=== PATIENT | female | born 1990 | race African-American/Black ===

== ENCOUNTER 2018-02-19 12:57 | Inpatient (IN) ==
[2018-02-19] MEDS ORDERED: LABETALOL 200 MG TABLET PO SCH (14:00)
[2018-02-19 14:05] LABS: Basophils % 0.3 % (0.0-0.8); Eosinophils % 0.5 % (0.00-10.9); Hematocrit 28.6 VOL% (35.7-47.0); Hemoglobin 8.8 GM/DL (12.0-16.0); Immature Granulocytes % 0.5 %; Immature Granulocytes Absolute 0.03 #; Lymphocytes # 1.6 10*3/uL (1.4-4.0); Lymphocytes % 24.3 % (21.3-54.2); Mean Corpuscular HGB Conc 30.8 GM/DL (32-36); Mean Corpuscular Hemoglobin 25 PG (27-34); Mean Corpuscular Volume 82.2 FL (87-102); Mean Platelet Volume 10.5 FL (9.6-12.0); Monocytes # 0.4 10*3/uL (0.11-0.8); Monocytes % 6.9 % (1.7-12.7); NRBC # 0.02 10*3/uL; Neutrophils # 4.3 10*3/uL (1.4-7.4); Neutrophils % 67.5 % (38.7-73.9); Platelet Count 241 T/CUMM (130-400); Red Blood Count 3.48 MC/CUMM (3.8-5.5); Red Cell Distribution Width 13.6 % (9.3-17.3); White Blood Count 6.4 T/CUMM (4-12)
[2018-02-19 14:33] LABS: Alanine Aminotransferase 13 U/L (13-56); Albumin 2.6 G/DL (3.4-5.0); Alkaline Phosphatase 136 U/L (45-117); Aspartate Amino Transferase 15 U/L (0-37); Bilirubin,Total < 0.39 MG/DL (0.2-1.0); Blood Urea Nitrogen 8 MG/DL (7-18); Calcium 8.6 MG/DL (8.5-10.1); Glucose 71 MG/DL (74-106); Osmolality,Calculated 270.7 MOS/KG (273-304); Potassium 3.6 MMOL/L (3.5-5.1); Sodium 138 MMOL/L (136-145); Total Protein 6.9 G/DL (6.4-8.3); Uric Acid 5.3 MG/DL (2.6-6.0)
[2018-02-19 14:59] LABS: Apearance,Urine Slightly Hazy (Clear); Bacteria,Urine Few /HPF (Few); Bilirubin,Urine Negative (Negative); Blood, Urine Negative (Negative); Glucose,Urine (UA) Negative (Negative); Ketones,Urine 5 mg/dL (Negative); Mucus,Urine Many /LPF (Occasional); Nitrite,Urine Negative (Negative); Protein,Urine 30 MG/DL; RBC,Urine 3 /HPF (0-4); Squamous Epithelial Cell,Urine Occasional /HPF (0-10); Urine Color Yellow (Yellow); Urine Specific Gravity 1.024 (1.001-1.035); WBC,Urine 7 /HPF (0-6)
[2018-02-19] MEDS ORDERED: BUTORPHANOL 2 MG/ML VIAL IV PRN (15:20)
[2018-02-19] MEDS ORDERED: MEPERIDINE 50 MG/1 ML VIAL IV PRN (15:20)
[2018-02-19] MEDS: LABETALOL 200 MG TABLET PO SCH (22:07)
[2018-02-19] MEDS: LACTATED RINGERS 1,000 ML IV SCH (23:40)
[2018-02-20] MEDS: LACTATED RINGERS 1,000 ML IV SCH (00:06)
[2018-02-20] MEDS ORDERED: AMPICILLIN INJ 2,000 MG in SODIUM CHLORIDE 0.9% 100 ML IV SCH (07:30)
[2018-02-20] MEDS ORDERED: CITRIC ACID/SODIUM CITRATE 30 ML UDCUP PO ONE (07:31)
[2018-02-20] MEDS ORDERED: ceFAZolin 3,000 MG in SYRINGE 1 EACH IV ONE (07:32)
[2018-02-20] MEDS ORDERED: FAMOTIDINE 20 MG/2 ML VIAL IV ONE (07:32)
[2018-02-20] MEDS ORDERED: OXYTOCIN/LR 20 UNIT/1,000 ML BAG IV ONE ×2 (07:32→11:07)
[2018-02-20] MEDS: LABETALOL 200 MG TABLET PO SCH ×3 (07:58→21:02)
[2018-02-20 08:43] LABS: INR 0.9; PT Patient Result 9.9 SECS; Partial Thromboplastin Time 26.6 SECS (0-40)
[2018-02-20] MEDS ORDERED: RHO(D) IMMUNE GLOBULIN 300 MCG SYRINGE IM ONE (11:07)
[2018-02-20] MEDS ORDERED: ONDANSETRON 4 MG/2 ML VIAL IV PRN (11:07)
[2018-02-20] MEDS ORDERED: LANOLIN 50% CREAM 0.3 OZ TUBE TOP PRN (11:07)
[2018-02-20] MEDS ORDERED: BENZOCAINE 20%/MENTHOL 0.5% SPRAY 56 GM CAN TOP PRN (11:07)
[2018-02-20] MEDS ORDERED: MEASLES/MUMPS/RUBELLA VACCINE 0.5 ML VIAL SUBCUT ONE (11:07)
[2018-02-20] MEDS ORDERED: HYDROCORTISONE 2.5% RECTAL CREAM 30 GM TUBE TOP PRN (11:07)
[2018-02-20] MEDS ORDERED: BISACODYL 10 MG SUPP RECTAL PRN (11:07)
[2018-02-20] MEDS ORDERED: oxyCODONE/ACETAMINOPHEN 5-325 MG TABLET PO PRN (11:07)
[2018-02-20] MEDS ORDERED: ACETAMINOPHEN 325 MG TABLET PO PRN (11:07)
[2018-02-20] MEDS ORDERED: WITCH HAZEL PADS 100/JAR TOP PRN (11:07)
[2018-02-20] MEDS ORDERED: DIPH/TET/ACEL PERT BOOSTER VACCINE 0.5 ML VIAL IM ONE (11:07)
[2018-02-20] MEDS ORDERED: fentaNYL 100 MCG/2 ML VIAL ONE (11:13)
[2018-02-20] MEDS ORDERED: MORPHINE 10 MG/10 ML VIAL ONE (11:14)
[2018-02-20] MEDS: ONDANSETRON 4 MG/2 ML VIAL IV PRN ×2 (11:53→21:01)
[2018-02-20] MEDS ORDERED: PROMETHAZINE 25 MG/1 ML VIAL IM ONE (14:55)
[2018-02-20] MEDS ORDERED: BUPIVACAINE SPINAL 0.75% 2 ML AMP SPINAL ONE (15:08)
[2018-02-20] MEDS ORDERED: HYDROmorphone 2 MG/1 ML VIAL IV PRN (17:58)
[2018-02-20] MEDS: ceFAZolin 1,000 MG in SYRINGE 1 EACH IV SCH (18:08)
[2018-02-21] MEDS: DOCUSATE SODIUM 100 MG CAPSULE PO SCH ×3 (02:10→20:57)
[2018-02-21] MEDS: oxyCODONE/ACETAMINOPHEN 5-325 MG TABLET PO PRN ×4 (02:11→18:48)
[2018-02-21] MEDS: IBUPROFEN 800 MG TABLET PO PRN ×2 (02:11→20:57)
[2018-02-21] MEDS: ceFAZolin 1,000 MG in SYRINGE 1 EACH IV SCH ×2 (04:05→10:43)
[2018-02-21 04:42] LABS: Basophils % 0.1 % (0.0-0.8); Eosinophils % 0.4 % (0.00-10.9); Hematocrit 23.3 VOL% (35.7-47.0); Immature Granulocytes % 0.5 %; Immature Granulocytes Absolute 0.04 #; Lymphocytes # 1.5 10*3/uL (1.4-4.0); Lymphocytes % 19.5 % (21.3-54.2); Mean Corpuscular Hemoglobin 25 PG (27-34); Mean Corpuscular Volume 82.3 FL (87-102); Mean Platelet Volume 11.1 FL (9.6-12.0); Monocytes # 0.7 10*3/uL (0.11-0.8); Monocytes % 8.5 % (1.7-12.7); Neutrophils # 5.6 10*3/uL (1.4-7.4); Platelet Count 171 T/CUMM (130-400); Red Blood Count 2.83 MC/CUMM (3.8-5.5); Red Cell Distribution Width 13.4 % (9.3-17.3); White Blood Count 7.9 T/CUMM (4-12)
[2018-02-21 05:30] LABS: Hypochromasia 1+; Microcytosis Slight; Platelet Estimate Adequate
[2018-02-21] MEDS ORDERED: SIMETHICONE CHEW 80 MG TABLET PO PRN (08:45)
[2018-02-21] MEDS: LABETALOL 200 MG TABLET PO SCH ×3 (08:57→20:57)
[2018-02-21] MEDS: MAGNESIUM HYDROXIDE SUSP 30 ML UDCUP PO PRN ×2 (08:58→20:57)
[2018-02-21] MEDS: FERROUS SULFATE 325 MG TABLET PO SCH (21:06)
[2018-02-22] MEDS: oxyCODONE/ACETAMINOPHEN 5-325 MG TABLET PO PRN ×2 (06:05→10:54)
[2018-02-22 07:32] VITALS: BP 138/78
[2018-02-22] MEDS: DOCUSATE SODIUM 100 MG CAPSULE PO SCH (08:50)
[2018-02-22] MEDS: LABETALOL 200 MG TABLET PO SCH (08:50)
[2018-02-22] MEDS: FERROUS SULFATE 325 MG TABLET PO SCH (08:53)
[2018-02-22] MEDS ORDERED: INFLUENZA VIRUS VACCINE 0.5 ML SYRINGE IM ONE (10:56)
== END 2018-02-22 14:00 | disposition home or self-care (01) | DRG 540 ==
LOC: N.LDOUT 12:57 → N.LD 13:00 → N.OB 02-20 14:37
PROVIDERS: ADMIT Specialist; ATTEND Specialist
PROC: LDCSECT (ICD-10-PCS; 2018-02-20 09:45)